=== PATIENT | female | born 1990 | race American Indian/Alaskan Native ===

== ENCOUNTER 2017-06-28 20:26 | Emergency (ER) | payer OTHER ==
[2017-06-28] MEDS ORDERED: BENADRYL IV ONE (20:50)
[2017-06-28] MEDS ORDERED: PEPCID PO ONE (20:50)
[2017-06-28] MEDS ORDERED: NACL 0.9% 1000 ML 1,000 ML IV ONE (20:50)
--- NOTE | 2017-06-28 20:52 | Emergency Department Report ---
HPI - General Chief Complaint: Allergic Reaction Time Seen by Provider: 06/28/17 20:50 ED Past Medical Hx - Past Medical History Previous Medical History?: No - Surgical History Past Surgical History?: No - Social History Smoking Status: Never Smoker Substance Use Type: Alcohol ED Review of Systems ROS: Stated complaint: ALLERIGIES REACTION Other details as noted in HPI Physical Exam - Physical Exam Vital Signs: Vital Signs 06/28/17 20:41 Temperature 98 F Pulse Rate 72 Blood Pressure 116/74 O2 Sat by Pulse 98 Oximetry ED Course Vital Signs 06/28/17 20:41 Temperature 98 F Pulse Rate 72 Blood Pressure 116/74 O2 Sat by Pulse 98 Oximetry Critical care attestation.: If time is entered above; I have spent that time in minutes in the direct care of this critically ill patient, excluding procedure time. ED Disposition Condition: Stable
--- NOTE | 2017-06-28 20:53 | Emergency Department Report ---
ED Allergic Reaction HPI - General Chief complaint: Allergic Reaction Stated complaint: ALLERIGIES REACTION Time Seen by Provider: 06/28/17 20:50 Source: EMS Mode of arrival: Stretcher Limitations: No Limitations - History of Present Illness Initial Comments: 26 YO FEMALE HERE FROM [facility] FOR ONE MONTH AND IS HAVING HER SECOND EPISODE OF FACIAL AND TONGUE SWELLING. SHE DOES NOT KNOW WHAT IS CAUSING THIS. SHE WAS MOVING A SUIT CASE AT THE TIME THIS OCCURRED. THE FIRST EPISODE WAS NOT FOOD RELATED. SHE FEELS THAT THIS SIS STRESS/ANXIETY RELATED. SHE C/O ITCHING , FACIAL AND TONGUE SWELLING, HIVE ON HER NECK,BACK AND BELLY. SHE DENIES SHORTNESS OF BREATH.OR WHEEZING. MD Complaint: allergic reaction, hives, facial swelling -: Sudden, hour(s) (1) Exposure: unknown Symptoms: rash, itching, facial swelling, lip swelling, orolingual swelling. denies: difficulty swallowing, difficulty breathing Severity: moderate Treatment Prior to Arrival: benadryl Previous Allergy History: angioedema - Related Data Previous Rx's Medication Instructions Recorded Last Taken Type Dexamethasone [Decadron] 20 mg PO Q12H #3 tablet 06/28/17 Unknown Rx EPINEPHrine [Epipen] 0.3 mg IJ ONCE #3 auto.injct 06/28/17 Unknown Rx Ranitidine HCl [Acid [employer]] 150 mg PO BID #20 tablet 06/28/17 Unknown Rx diphenhydrAMINE [Benadryl CAP] 50 mg PO Q8HR PRN #30 capsule 06/28/17 Unknown Rx Allergies Allergy/AdvReac Type Severity Reaction Status Date / Time Unable to Assess Allergy Verified 06/28/17 20:48 ED Review of Systems ROS: Stated complaint: ALLERIGIES REACTION Other details as noted in HPI Constitutional: denies: chills, fever Eyes: denies: eye pain, eye discharge, vision change ENT: denies: ear pain, throat pain Respiratory: denies: cough, shortness of breath, SOB at rest, stridor, wheezing Cardiovascular: denies: chest pain, palpitations Endocrine: no symptoms reported Gastrointestinal: denies: abdominal pain, nausea, diarrhea Genitourinary: denies: urgency, dysuria, discharge Musculoskeletal: denies: back pain, joint swelling, arthralgia Skin: rash, pruritus. denies: lesions Neurological: denies: headache, weakness, paresthesias Psychiatric: denies: anxiety, depression Hematological/Lymphatic: denies: easy bleeding, easy bruising ED Past Medical Hx - Past Medical History Previous Medical History?: No - Surgical History Past Surgical History?: No - Social History Smoking Status: Never Smoker Substance Use Type: Alcohol - Medications Home Medications: Home Medications Medication Instructions Recorded Confirmed Last Taken Type Dexamethasone [Decadron] 20 mg PO Q12H #3 tablet 06/28/17 Unknown Rx EPINEPHrine [Epipen] 0.3 mg IJ ONCE #3 auto.injct 06/28/17 Unknown Rx Ranitidine HCl [Acid [employer]] 150 mg PO BID #20 tablet 06/28/17 Unknown Rx diphenhydrAMINE [Benadryl CAP] 50 mg PO Q8HR PRN #30 capsule 06/28/17 Unknown Rx ED Physical Exam - General Limitations: No Limitations General appearance: alert, in no apparent distress - Head Head exam: Present: atraumatic - Eye Eye exam: Present: normal appearance, EOMI - ENT ENT exam: Present: mucous membranes moist, other (LIP VERY SWOLLEN, TONGUE SWOLLEN). Absent: mucous membranes dry - Neck Neck exam: Present: normal inspection - Respiratory Respiratory exam: Present: normal lung sounds bilaterally. Absent: respiratory distress - Cardiovascular Cardiovascular Exam: Present: regular rate, normal rhythm. Absent: systolic murmur, diastolic murmur, rubs, gallop - GI/Abdominal GI/Abdominal exam: Present: soft, normal bowel sounds. Absent: distended, tenderness - Rectal Rectal exam: Present: deferred - Extremities Exam Extremities exam: Present: normal inspection, full ROM - Back Exam Back exam: Present: normal inspection, full ROM - Neurological Exam Neurological exam: Present: alert, oriented X3, CN II-XII intact - Psychiatric Psychiatric exam: Present: normal affect, normal mood - Skin Skin exam: Present: warm, dry, intact, normal color, rash (ON NECK, CHEST, BACK) ED Course Vital Signs 06/28/17 20:41 Temperature 98 F Pulse Rate 72 Blood Pressure 116/74 O2 Sat by Pulse 98 Oximetry - Reevaluation(s) Reevaluation #1: 06/28/17 21:17 NO WHEEZING, URTICARIA ON HER BACK HAS GONE AWAY. PT IS SLEEPY FROM THE BENADRYL ,NO INCREASED SWELLIGN OF LIPS OR FACE OR TONGUE, LUNGS CLEAR Reevaluation #2: 06/28/17 22:46 IMPROVING , NO TONGUE SWELLING, LUNGS STILL CLEAR, NO URTICARIA ON NECK, NO URTICARIA ON BACK, NOR SOB ED Medical Decision Making - Medical Decision Making PT HAS IMPROVED SIGNIFICANTLY, NO PRURITUS, NO URTICARIA, TONGUE SWELLING IS GONE, WILL D/C HOME WITH EPI PEN,. AND STEROIDS BENADRYL,ZANTAC Critical Care Time: Yes Critical care time in (mins) excluding proc time.: 90 Critical care attestation.: If time is entered above; I have spent that time in minutes in the direct care of this critically ill patient, excluding procedure time. YEFRI Critical Care Time: 90 ED Disposition Clinical Impression: Allergic reaction Qualifiers: Encounter type: initial encounter Qualified Code(s): T78.40XA - Allergy, unspecified, initial encounter Angioedema Qualifiers: Encounter type: initial encounter Qualified Code(s): T78.3XXA - Angioneurotic edema, initial encounter Disposition: DC TO HOME OR SELFCARE Is pt being admited?: No Does the pt Need Aspirin: No Condition: Stable Instructions: Urticaria (ED), Angioedema (ED) Additional Instructions: PLEASE KEEP EPI PEN WITH YOU AT ALL TIMES,BENADRYL ALSO Prescriptions: Dexamethasone [Decadron] 20 mg PO Q12H #3 tablet diphenhydrAMINE [Benadryl CAP] 50 mg PO Q8HR PRN #30 capsule PRN Reason: Allergic Reaction EPINEPHrine [Epipen] 0.3 mg IJ ONCE #3 auto.injct Ranitidine HCl [Acid [employer]] 150 mg PO BID #20 tablet Referrals: [facility] [Outside] - 3-5 Days
[2017-06-28] MEDS ORDERED: DECADRON 20 MG in NACL 0.9% 50 ML IV ONE (21:30)
[2017-06-28 23:11] VITALS: BP 120/74
== END 2017-06-28 23:12 | disposition home or self-care (01) ==
LOC: ED 20:26
DX: T78.40XA Allergy, unspecified, initial encounter (principal); T78.3XXA Angioneurotic edema, initial encounter; F10.10 Alcohol abuse, uncomplicated
CPT/HCPCS: 96365; 96366; 96375; 99291; 99292; J1100; J1200; J7030